=== PATIENT | female | born 1985 | race Caucasian/White ===

== ENCOUNTER 2018-02-15 20:27 | Emergency (ER) | payer MEDICAID ==
[~2018-02-15] VITALS: Ht 160 cm; Wt 73.7 kg
[~2018-02-15 20:27] MED LIST: MESA800T PO; ONDA4TAB12 PO
[2018-02-15 20:32] VITALS: BP 123/72
== END 2018-02-15 21:01 | disposition home or self-care (01) ==
LOC: ER 20:27
DX: L08.9 Local infection of the skin and subcutaneous tissue, unspecified (principal); Z88.2 Allergy status to sulfonamides; Z79.899 Other long term (current) drug therapy; Z88.0 Allergy status to penicillin
CPT/HCPCS: 99282

== ENCOUNTER 2018-04-26 15:37 | Emergency (ER) | payer MEDICAID ==
[~2018-04-26] VITALS: Ht 160 cm; Wt 65.9 kg
[2018-04-26 16:22] LABS: URINE HCG POSITIVE (NEG)
[2018-04-26 16:33] LABS: CLARITY,URINE CLEAR (Clear)
[2018-04-26 16:39] LABS: COLOR,URINE ORANGE (Yellow); UA COLLECTION TYPE CLN CATCH MIDSTREAM
[2018-04-26 16:48] LABS: MUCUS STRANDS FEW /LPF (Neg); SQUAMOUS EPITHELIAL CELL,UR MODERATE /LPF (FEW)
[2018-04-26 16:52] LABS: BACTERIA,URINE FEW /HPF (Neg); RBC,URINE 0-2 /HPF (0-2); TRANSITIONAL EPI CELLS,URINE FEW /HPF; WBC,URINE 0-4 /HPF (0-4)
[2018-04-26 18:38] VITALS: BP 133/76
[2018-04-26] MEDS ORDERED: CEPH500C5 PO (19:15)
== END 2018-04-26 19:30 | disposition home or self-care (01) ==
LOC: ER 15:37
DX: O26.891 Other specified pregnancy related conditions, first trimester (principal); N39.0 Urinary tract infection, site not specified; Z88.2 Allergy status to sulfonamides; Z79.2 Long term (current) use of antibiotics; Z79.899 Other long term (current) drug therapy; Z3A.01 Less than 8 weeks gestation of pregnancy
CPT/HCPCS: 36415; 81001; 81025; 84702; 99283

== ENCOUNTER 2019-08-02 05:15 | Emergency (ER) | payer MEDICAID ==
[~2019-08-02] VITALS: Ht 160 cm; Wt 80.0 kg
[~2019-08-02 05:15] MED LIST changes: +AZIT250T81 PO
[2019-08-02] MEDS ORDERED: PRED20TA PO (05:24)
[2019-08-02] MEDS ORDERED: methylPREDNISolone sod succ 125mg/2ml vial IM ONE (05:25)
== END 2019-08-02 05:33 | disposition home or self-care (01) ==
LOC: ER 05:16
DX: L50.8 Other urticaria (principal); T78.40XA Allergy, unspecified, initial encounter; Z98.890 Other specified postprocedural states; Z88.1 Allergy status to other antibiotic agents; Z88.8 Allergy status to other drugs, medicaments and biological substances; Z79.899 Other long term (current) drug therapy; Y92.89 Other specified places as the place of occurrence of the external cause
CPT/HCPCS: 96372; 99283; J2930

== ENCOUNTER 2019-09-22 00:08 | Emergency (ER) | payer MEDICAID ==
[~2019-09-22] VITALS: Ht 160 cm; Wt 81.8 kg
[~2019-09-22 00:08] MED LIST changes: -AZIT250T81 PO
[2019-09-22] MEDS ORDERED: normal saline 1000ML IV soln IVB ONE (00:20)
[2019-09-22] MEDS ORDERED: morphine 4 MG/ML inj SYRINge IV PRN (00:20)
[2019-09-22] MEDS ORDERED: ketorolac trometh. 30mg/ml inj. IV ONE (00:20)
[2019-09-22] MEDS ORDERED: ondansetron/PF 4mg/2ml inj IV ONE (00:20)
[2019-09-22 00:56] LABS: CLARITY,URINE CLOUDY (Clear); COLOR,URINE YELLOW (Yellow); GLUCOSE, URINE NEGATIVE (Neg); KETONES,URINE NEGATIVE (Neg); LEUKOCYTE ESTERASE ,URINE TRACE (Neg); NITRITES, URINE NEGATIVE (Neg); OCCULT BLOOD,URINE LARGE (Neg); PROTEIN,URINE NEGATIVE (Neg); UROBILINOGEN,URINE 0.2 E.U/dL (0.2-1.0)
[2019-09-22 00:57] LABS: URINE HCG NEGATIVE (NEG)
[2019-09-22 01:02] LABS: UA COLLECTION TYPE CLN CATCH MIDSTREAM
[2019-09-22 01:04] LABS: RBC,URINE TNTC /HPF (0-2); WBC,URINE 0-4 /HPF (0-4)
[2019-09-22 01:05] LABS: BACTERIA,URINE NONE SEEN /HPF (Neg); SQUAMOUS EPITHELIAL CELL,UR FEW /LPF (FEW)
[2019-09-22] MEDS ORDERED: ondansetron 4mg rapidly disintigrating tab PO ONE ×2 (01:15→02:05)
[2019-09-22] MEDS ORDERED: ketorolac trometh inj. 60 MG/2 ML VIAL IM ONE (01:15)
[2019-09-22 01:33] LABS: BASOPHILS # (AUTO) 0.1 X10'3 (0-0.2); BASOPHILS % (AUTO) 0.4 % (0-1); EOSINOPHILS # (AUTO) 0.4 X10'3 (0-0.9); HEMATOCRIT 41.1 % (35.0-45.0); HEMOGLOBIN 13.8 g/dl (12.0-16.0); LYMPHOCYTES # (AUTO) 2.3 X10'3 (1.1-4.8); LYMPHOCYTES % (AUTO) 17.6 % (21-51); MEAN CORPUSCULAR HEMOGLOBIN 29.8 PG (27.0-31.0); MEAN CORPUSCULAR HGB CONC 33.6 g/dL (33.0-36.5); MEAN CORPUSCULAR VOLUME 88.8 FL (78-98); MEAN PLATELET VOLUME 8.1 FL (7.4-10.4); MONOCYTES # (AUTO) 0.9 X10'3 (0-0.9); MONOCYTES % (AUTO) 6.6 % (2-12); NEUTROPHILS # (AUTO) 9.6 X10'3 (1.8-7.7); NEUTROPHILS % (AUTO) 72.4 % (42-75); PLATELET COUNT 307 X10'3 (140-440); RED BLOOD COUNT 4.62 X10'6 (4.20-5.60); RED CELL DISTRIBUTION WIDTH 14.5 % (11.5-14.5); WHITE BLOOD COUNT 13.3 X10'3 (4.5-11.0)
--- NOTE | 2019-09-22 01:37 | NUR ---
UNABLE TO OBTAIN IV ACCESS MULTIPLE ATTEMPT BY 4 DIFFERENT NURSES. MD AT BEDSIDE PERFORMED FEMORAL STICK TO OBTAIN LAB DRAW.
[2019-09-22 01:48] LABS: ALANINE AMINOTRANSFERASE 21 U/L (12-78); ALBUMIN 3.5 G/DL (3.4-5.0); ALKALINE PHOSPHATASE 73 IU/L (46-116); ANION GAP 9 (8-16); ASPARTATE AMINO TRANSFERASE 16 U/L (10-37); BILIRUBIN,TOTAL 0.3 MG/DL (0.1-1.0); BLOOD UREA NITROGEN 6 MG/DL (7-18); BUN/CREATININE RATIO 8.8 (6.6-38.0); CALCIUM 8.3 MG/DL (8.5-10.1); CHLORIDE 108 MMOL/L (99-107); CREATININE 0.68 MG/DL (0.40-0.90); GLUCOSE 104 MG/DL (70-104); LIPASE 111 U/L (73-393); SODIUM 139 MMOL/L (135-145); TOTAL CARBON DIOXIDE 21.9 MMOL/L (24-32); TOTAL PROTEIN 6.9 G/DL (6.4-8.2); eGFR > 90 ML/MIN
[2019-09-22] MEDS ORDERED: morphine 4 MG/ML inj SYRINge IM ONE (02:05)
[2019-09-22] MEDS ORDERED: TRAM50TA2 PO (02:06)
[2019-09-22] MEDS ORDERED: PRED20TA PO (02:06)
[2019-09-22 02:23] VITALS: BP 148/72
== END 2019-09-22 02:26 | disposition home or self-care (01) ==
LOC: ER 00:09
DX: K51.90 Ulcerative colitis, unspecified, without complications (principal); F17.200 Nicotine dependence, unspecified, uncomplicated; Z72.89 Other problems related to lifestyle; Z98.890 Other specified postprocedural states; Z88.2 Allergy status to sulfonamides; Z88.8 Allergy status to other drugs, medicaments and biological substances; Z79.899 Other long term (current) drug therapy
CPT/HCPCS: 36415; 74176; 80053; 81001; 81025; 83690; 85025; 87088; 96372; 99284; J1885; J2270

== ENCOUNTER 2023-10-22 22:04 | Emergency (ER) | payer MEDICAID ==
[~2023-10-22] VITALS: Ht 160 cm; Wt 76.0 kg
[2023-10-22 22:12] VITALS: TEMP 98
[2023-10-23 01:43] VITALS: BP 136/82; PULSE 78; RESP 15; O2SAT 100
== END 2023-10-23 01:45 | disposition home or self-care (01) ==
LOC: ER 22:05
DX: S62.627A Displaced fracture of middle phalanx of left little finger, initial encounter for closed fracture (principal); Z88.0 Allergy status to penicillin; Z88.8 Allergy status to other drugs, medicaments and biological substances; Z79.899 Other long term (current) drug therapy; Z72.89 Other problems related to lifestyle; W18.09XA Striking against other object with subsequent fall, initial encounter; Y93.89 Activity, other specified; Y92.89 Other specified places as the place of occurrence of the external cause; Y99.8 Other external cause status
CPT/HCPCS: 26742; 73140; 99285

== ENCOUNTER 2024-12-20 00:17 | Emergency (ER) | payer MEDICAID ==
[~2024-12-20] VITALS: Ht 160 cm; Wt 79.5 kg
[~2024-12-20 00:17] MED LIST changes: +MESA1.2T PO; -MESA800T PO; +METH-603 PO; -ONDA4TAB12 PO
[2024-12-20] MEDS ORDERED: METH-603 PO (00:56)
[2024-12-20 01:00] LABS: URINE HCG NEGATIVE (NEG)
[2024-12-20 01:07] LABS: UA COLLECTION TYPE CLN CATCH MIDSTREAM
[2024-12-20 01:24] LABS: SQUAMOUS EPITHELIAL CELL,UR FEW /LPF (FEW)
[2024-12-20] MEDS ORDERED: NITR100C6 PO (01:31)
--- NOTE | 2024-12-20 01:31 | Physician Documentation ---
History of Present Illness ~ Chief Complaint: Urinary Symptoms Stated Complaint: UTI A ALS Time Seen by MD: 00:28 Primary Medical Doctor: MERY DOYLE HPI 39 year old female reports urinary frequency and blood in urine for the past few days. Denies fever, N/V/D, dysuria. Medication Reconciliation Allergies: Coded Allergies: sulfamethoxazole (Unverified Allergy, Intermediate, 01/22/24) trimethoprim (Unverified Allergy, Intermediate, 01/22/24) Uncoded Allergies: PENICILLIN (Allergy, Intermediate, 01/29/17) Scheduled Methadone Hcl* (Dolophine*), 40 MG PO TID, (Reported) Discontinued Medications Mesalamine (Lialda), 1.2 GM PO Q8H Discontinued Reason: patient no longer taking Methadone Hcl* (Dolophine*), 124 MG PO DAILY, (Reported) Discontinued Reason: patient no longer taking Past Medical History Past Medical History: Bronchitis, *GI/HEPATOBILIARY*, Cellulitis Past Surgical History: noncontributory, orthopedic surgeries Alcohol Use: Occasionally Drug Use: none Lives with: Family Lives In: Home Review of Systems All Other Systems at this time: Reviewed and Negative Physical Exam Vital Signs: RN Vital Signs have been reviewed: Yes, Temperature: 97.7, Source: Oral, Heart Rate: 90, Respiratory Rate: 14, BP: 120/81, Pulse Oximetry: 97, Weight: 79.550 Oxygen Flow Rate: 0 Physical Exam HEENT: PERRL, moist oral mucosa, EOMI Pulmonary: No respiratory distress MSK: no deformity Skin: w/d/i, no rash Neuro: alert, nonfocal Psych: normal affect Progress Results/Orders Results/Orders Orders - DELORES PRATER MD Cbc/Diff (12/20/24 00:23) Lipase (12/20/24 00:23) CMP (12/20/24 00:23) Straight Cath For Urine Sample (12/20/24 00:23) Cult Urine + [place] [address] (12/20/24 01:24) Nitrofur Garden/Nitrofuran Macr (Macrobid (12/20/24 01:30) Completed Orders - DELORES PRATER MD Hcg, Ur Ql (12/20/24 00:23) Ua W/Microscopic, Cult If Ind (12/20/24 00:35) Vital Signs 12/20/24 12/20/24 00:28 00:52 Temp 97.7 97.7 Pulse 82 90 Resp 16 14 B/P (MAP) 118/80 120/81 (94) Pulse Ox 96 97 O2 Flow Rate 0 0 Laboratory Tests Test 12/20/24 00:35 Urine Specimen Description Cln catch midstream Urine Color [place] Urine Clarity Cloudy Urine pH Urine Specific [place] Urine Protein Urine Glucose (UA) Urine Ketones Urine Occult Blood Urine Nitrite Urine Bilirubin Urine Urobilinogen Urine Leukocyte Esterase Urine RBC 3-10 Urine WBC 50-100 H Urine Squamous Epithelial Cells Few Urine Bacteria 1+ Urine Culture Indicated Indicated Volume Urine Centrifuged 10 ml Urine HCG, Qualitative Negative Urine Comment See note Medical Decision Making Findings 39 year old female as above. UA suggested UTI. Rx ABx return precautions. Additional Comment Ddx = UTI, pyelonephritis, cystitis, urethritis Departure Disposition: HOME / SELF CARE / HOMELESS Impression: Primary Impression: UTI (urinary tract infection) Condition: Stable Discharge Instructions: Urinary Tract Infection, Adult Referrals: NO PRIMARY CARE PROVIDER (PCP) Prescriptions Nitrofurantoin Monohyd/M-Cryst (Macrobid 100 mg Capsule) 100 Mg Capsule 1 CAP PO Q12H for 7 Days, #14 CAP 0 Refills Prov: DELORES PRATER MD 12/20/24 Education Educated: Patient Educated regarding: diagnosis, treatment, prognosis, need for follow up Signature Scribe Signature: . Attestation: . DELORES PRATER MD Dec 20, 2024 01:31
[2024-12-20] MEDS: nitrofuran monohydrate/nitrofuran macrocrysal 100 MG (MacroBID) capsule PO ONE (01:46)
[2024-12-20 01:51] VITALS: BP 121/80; PULSE 89; RESP 18; TEMP 98.6; O2SAT 99
== END 2024-12-20 01:52 | disposition home or self-care (01) ==
LOC: ER 00:17
DX: N39.0 Urinary tract infection, site not specified (principal); Z88.1 Allergy status to other antibiotic agents; Z88.2 Allergy status to sulfonamides
CPT/HCPCS: 81001; 81025; 87088; 99283